=== PATIENT | male | born 2000 | race Caucasian/White ===

== ENCOUNTER 2022-06-26 10:58 | Emergency (ER) | payer SELFPAY ==
[2022-06-26 11:11] VITALS: RESP 18; TEMP 97.8; BMI 32.3
[2022-06-26] MEDS ORDERED: FAMOTIDINE 20 MG/50 ML IVPB 20 MG/50 ML MG IVPB ONE (11:34)
[2022-06-26] MEDS ORDERED: PANTOPRAZOLE SODIUM 40 MG VIAL IVPUSH ONE (11:34)
[2022-06-26] MEDS ORDERED: SODIUM CHLORIDE 0.9% 500 ML INFUS.BAG IV ONE (11:34)
[2022-06-26] MEDS ORDERED: MAG HYDROX/AL HYDROX/SIMETH 30 ML UNIT-DOSE CUP PO ONE (11:34)
[2022-06-26] MEDS ORDERED: ONDANSETRON 4 MG/2 ML VIAL IVPUSH ONE (11:34)
[2022-06-26] MEDS ORDERED: PANTOPRAZOLE SODIUM 40 MG/100 ML BAG IVPB ONE (12:49)
[2022-06-26 13:57] LABS: BASO % 0.4 % (0-2.0); EOS % 2.8 % (0-4.5); HEMATOCRIT 43.7 % (35.4-49); LYMPH % 29.8 % (8-40); MCH 29.7 pg (25.7-33.7); MCHC 34.3 g/dl (32.0-35.9); MEAN CELL VOLUME 86.5 fl (80-96); MEAN PLT VOLUME 6.6 fl (7.5-11.1); MONO % 9.9 % (3.8-10.2); NEUT % 57.1 % (42.8-82.8); PLATELET COUNT 486 10^3/uL (134-434); RBC 5.05 M/mm3 (4.00-5.60); RDW 13.7 % (11.9-15.9); WHITE BLOOD COUNT 6.5 K/mm3 (4.0-10.0)
[2022-06-26 14:07] LABS: CALCIUM 9.1 mg/dL (8.5-10.1)
[2022-06-26 14:08] LABS: ALBUMIN 4.3 g/dl (3.4-5.0); BLOOD UREA NITROGEN 11.2 mg/dL (7-18)
[2022-06-26 14:09] LABS: CREATININE 0.6 mg/dL (0.55-1.3)
[2022-06-26 14:12] LABS: BILIRUBIN,TOTAL 0.5 mg/dL (0.2-1); TOT PROT 7.7 g/dl (6.4-8.2)
[2022-06-26 15:53] LABS: URINE APPEARANCE CLEAR; URINE BILIRUBIN NEGATIVE (NEGATIVE); URINE COLOR YELLOW; URINE GLUCOSE (UA) NEGATIVE (NEGATIVE); URINE KETONE NEGATIVE (NEGATIVE); URINE LEUK ESTERASE NEGATIVE (NEGATIVE); URINE NITRITE NEGATIVE (NEGATIVE); URINE PROTEIN NEGATIVE (NEGATIVE); URINE UROBILINOGEN 0.2 mg/dL (0.2-1.0)
[2022-06-26 16:56] VITALS: BP 110/63; PULSE 56
== END 2022-06-26 17:00 | disposition home or self-care (01) ==
LOC: JER 10:58
PROC: 3E033NZ Introduction of Analgesics, Hypnotics, Sedatives into Peripheral Vein, Percutaneous Approach (ICD-10-PCS; principal; 2022-06-26)
PROC: 3E033GC Introduction of Other Therapeutic Substance into Peripheral Vein, Percutaneous Approach (ICD-10-PCS; 2022-06-26)
PROC: 3E033GC Introduction of Other Therapeutic Substance into Peripheral Vein, Percutaneous Approach (ICD-10-PCS; 2022-06-26)
DX: K29.00 Acute gastritis without bleeding (principal)
CPT/HCPCS: 36415; 74177-TC; 80053; 81003; 83690; 84484; 85025; 87086; 93005; 93010; 99285-25; Q9967

== ENCOUNTER 2023-03-22 14:27 | Emergency (ER) | payer OTHER ==
[2023-03-22 14:36] VITALS: BP 124/76; PULSE 74; RESP 16; TEMP 98; BMI 36.9
[2023-03-22] MEDS ORDERED: ONDANSETRON 4 MG/2 ML VIAL IVPUSH ONE (15:43)
[2023-03-22] MEDS ORDERED: SODIUM CHLORIDE 1,000 ML IV STA (15:43)
[2023-03-22] MEDS ORDERED: ACETAMINOPHEN 1000 MG/100 ML BAG IVPB ONE (15:46)
[2023-03-22] MEDS ORDERED: PANTOPRAZOLE SODIUM 40 MG VIAL IVPUSH ONE (15:46)
[2023-03-22] MEDS ORDERED: ONDANSETRON 4 MG/2 ML VIAL ONE (16:24)
[2023-03-22] MEDS ORDERED: ACETAMINOPHEN INJECTION 100 ML IVPB ONE (16:24)
[2023-03-22] MEDS ORDERED: PANTOPRAZOLE SODIUM 40 MG VIAL ONE (16:24)
[2023-03-22 18:05] LABS: BASO % 0.4 % (0-2.0); EOS % 3.9 % (0-4.5); HEMATOCRIT 44.8 % (35.4-49); LYMPH % 23.6 % (8-40); MCH 29.2 pg (25.7-33.7); MCHC 33.5 g/dl (32.0-35.9); MEAN CELL VOLUME 87.2 fl (80-96); MEAN PLT VOLUME 7.5 fl (7.5-11.1); MONO % 16.3 % (3.8-10.2); NEUT % 55.8 % (42.8-82.8); PLATELET COUNT 463 10^3/uL (134-434); RBC 5.13 M/mm3 (4.00-5.60); RDW 13.7 % (11.9-15.9); WHITE BLOOD COUNT 6.1 K/mm3 (4.0-10.0)
[2023-03-22 18:20] LABS: POTASSIUM 4.1 mmol/L (3.5-5.1)
[2023-03-22 18:24] LABS: ALBUMIN 4.4 g/dl (3.4-5.0)
[2023-03-22 18:26] LABS: CREATININE 0.7 mg/dL (0.55-1.3)
[2023-03-22 18:27] LABS: BILIRUBIN,TOTAL 0.7 mg/dL (0.2-1)
== END 2023-03-22 20:14 | disposition home or self-care (01) ==
LOC: JER 14:27
PROC: 3E033NZ Introduction of Analgesics, Hypnotics, Sedatives into Peripheral Vein, Percutaneous Approach (ICD-10-PCS; principal; 2023-03-22)
PROC: 3E033GC Introduction of Other Therapeutic Substance into Peripheral Vein, Percutaneous Approach (ICD-10-PCS; 2023-03-22)
PROC: 3E033GC Introduction of Other Therapeutic Substance into Peripheral Vein, Percutaneous Approach (ICD-10-PCS; 2023-03-22)
PROC: 3E0337Z Introduction of Electrolytic and Water Balance Substance into Peripheral Vein, Percutaneous Approach (ICD-10-PCS; 2023-03-22)
DX: R10.30 Lower abdominal pain, unspecified (principal); R11.2 Nausea with vomiting, unspecified; R19.7 Diarrhea, unspecified; B34.9 Viral infection, unspecified
CPT/HCPCS: 36415; 80053; 83690; 85025; 99284-25